=== PATIENT | male | born 1980 | race Caucasian/White ===

== ENCOUNTER 2017-06-05 12:57 | Emergency (ER) | payer OTHER ==
[2017-06-05] MEDS ORDERED: Phenergan 25 MG INJ IV ONE (13:28)
[2017-06-05] MEDS ORDERED: Sodium Chloride 0.9% 1000 ML 1,000 ML IV STA ×2 (13:28→14:56)
--- NOTE | 2017-06-05 13:36 | ERPHSYRPT ---
- History of Present Illness Time Seen by Provider: 06/05/17 13:32 Source: patient Exam Limitations: no limitations Patient Subjective Stated Complaint: was put on new meds today for heroin withdrawal. 30 min after taking them he felt nauseated and felt like his heart was racing. states he last used heroin two weeks ago. Triage Nursing Assessment: amublated to room. skin w/d, color normal, resp easy. pulse regular and normal rate. a/o times three. denies hives and itching Physician History: This is a 36-year-old white male who arrives with complaint of a nausea vomiting feels as if his heart is racing symptoms since approximately 1-1/2 hours. According to patient he is gone to see his family physician secondary to heroin withdrawal today, he states he has not used heroin for 2 weeks. He states that he was given a prescription for citalopram, diphenoxylate, and a prescription for naltrexone. He states shortly after taking these he began to experience heart racing nausea vomiting. Patient states symptoms began 30 minutes after taking his medications He has not had any hives or shortness of breath. Past medical history includes heroin addiction, kidney stones Past surgical history includes tonsillectomy and adenoidectomy, hernia repair, bariatric surgery Timing/Duration: today (1-1/2 hours prior to arrival) Severity: moderate Modifying Factors: Improves With: medication (just started diphenoxylate, citalopram, Naltrexone) Associated Symptoms: nausea, vomiting, malaise, other (heart racing), No shortness of breath, No heartburn, No diaphoresis, No cough, No chills, No chest pain, No fever, No headaches, No loss of appetite, No rash, No syncope, No seizure, No weakness Allergies/Adverse Reactions: No Known Drug Allergies Allergy (Unverified 06/05/17 13:20) Home Medications: Citalopram Hydrobromide [Citalopram HBr] 20 mg PO DAILY 06/05/17 [History] Diphenoxylate HCl/Atropine [Lomotil Tablet] 2 each PO BID 06/05/17 [History] Naltrexone HCl 50 mg PO DAILY 06/05/17 [History] Hx Tetanus, Diphtheria Vaccination/Date Given: No Hx Influenza Vaccination/Date Given: No Hx Pneumococcal Vaccination/Date Given: No - Review of Systems Constitutional: No Fever, No Chills Eyes: No Symptoms Ears, Nose, & Throat: No Symptoms Respiratory: No Cough, No Dyspnea Cardiac: Palpitations Abdominal/Gastrointestinal: No Abdominal Pain, No Nausea, No Vomiting, No Diarrhea, No Constipation, No Hematemesis, No Hematochezia, No Melena, No Dysphagia, No Appetite Changes Genitourinary Symptoms: No Dysuria Musculoskeletal: No Back Pain, No Neck Pain Skin: No Rash Neurological: No Dizziness, No Focal Weakness, No Sensory Changes Psychological: No Symptoms Endocrine: No Symptoms All Other Systems: Reviewed and Negative - Past Medical History Pertinent Past Medical History: Yes History: Other Other Medical History: heroin addiction, kidney stones - Past Surgical History Past Surgical History: Yes Gastrointestinal: Hernia Repair, Other Other Surgical History: bariatric surgery 2007 - Social History Smoking Status: Never smoker Exposure to second hand smoke: No Drug Use: heroin Patient Lives Alone: No - Nursing Vital Signs Nursing Vital Signs: Initial Vital Signs Temperature 98.1 F 06/05/17 13:05 Pulse Rate 74 06/05/17 13:05 Respiratory Rate 16 06/05/17 13:05 Blood Pressure 128/85 06/05/17 13:05 O2 Sat by Pulse Oximetry 100 06/05/17 13:05 Pain Scale Pain Intensity 0 - Physical Exam General Appearance: mild distress, alert, anxiety Eye Exam: PERRL/EOMI, eyes nml inspection Ears, Nose, Throat Exam: normal ENT inspection, TMs normal, pharynx normal, moist mucous membranes Neck Exam: normal inspection, non-tender, supple, full range of motion Respiratory Exam: normal breath sounds, lungs clear, No respiratory distress Cardiovascular Exam: regular rate/rhythm, normal heart sounds, normal peripheral pulses Gastrointestinal/Abdomen Exam: soft, normal bowel sounds, No tenderness, No mass Back Exam: normal inspection, normal range of motion, No CVA tenderness, No vertebral tenderness Extremity Exam: normal inspection, normal range of motion, pelvis stable Neurologic Exam: alert, oriented x 3, cooperative, fuel agent II-XII nml as tested, normal mood/affect, nml cerebellar function, nml station & gait, sensation nml, No motor deficits Skin Exam: normal color, warm, dry, No rash Lymphatic Exam: No adenopathy SpO2 Interpretation: normal (100%) SpO2: 100 Oxygen Delivery: Room Air - Course Nursing assessment & vital signs reviewed: Yes EKG Interpreted by Me: RATE (66 bpm), NORMAL AXIS, Other (EKG: Sinus arrhythmia at 66 bpm, normal axis, no acute ST or T wave changes essentially normal EKG) Ordered Tests: Active Orders 24 hr Category Date Time Status EKG-ER Only STAT Care 06/05/17 13:28 Active IV Insertion STAT Care 06/05/17 13:28 Active Psychiatric Evaluation STAT Care 06/05/17 17:05 Active ACETAMINOPHEN Stat Lab 06/05/17 13:30 Completed CBC W DIFF Stat Lab 06/05/17 13:38 Completed CMP Stat Lab 06/05/17 13:38 Completed ETHYL ALCOHOL Stat Lab 06/05/17 13:30 Completed SALICYLATE Stat Lab 06/05/17 13:30 Completed Urine Triage Profile Stat Lab 06/05/17 15:21 Completed Medication Summary Discontinued Medications Generic Name Dose Route Start Last Admin Trade Name Freq PRN Reason Stop Dose Admin Diphenhydramine HCl 25 mg 06/05/17 15:00 06/05/17 15:04 Benadryl 50 Mg/Ml IV 06/05/17 15:01 25 mg STAT ONE Administration Diphenhydramine HCl Confirm 06/05/17 15:02 Benadryl 50 Mg/Ml Administered 06/05/17 15:03 Dose 50 mg .ROUTE .STK-MED ONE Sodium Chloride 1,000 mls @ 999 mls/hr 06/05/17 13:28 06/05/17 13:39 Sodium Chloride 0.9% 1000 Ml IV 06/05/17 14:28 999 mls/hr .Q1H1M STA Administration Sodium Chloride Confirm 06/05/17 13:39 Sodium Chloride 0.9% 1000 Ml Administered 06/05/17 13:40 Dose 1,000 mls @ ud .ROUTE .STK-MED ONE Sodium Chloride Confirm 06/05/17 13:44 Sodium Chloride 0.9% 1000 Ml Administered 06/05/17 13:45 Dose 1,000 mls @ ud .ROUTE .STK-MED ONE Sodium Chloride 1,000 mls @ 999 mls/hr 06/05/17 14:56 06/05/17 15:04 Sodium Chloride 0.9% 1000 Ml IV 06/05/17 15:56 999 mls/hr .Q1H1M STA Administration Sodium Chloride Confirm 06/05/17 15:02 Sodium Chloride 0.9% 1000 Ml Administered 06/05/17 15:03 Dose 1,000 mls @ ud .ROUTE .STK-MED ONE Lorazepam 1 mg 06/05/17 15:24 06/05/17 15:29 Ativan 2 Mg/1 Ml Vial IV 06/05/17 15:25 1 mg STAT ONE Administration Lorazepam Confirm 06/05/17 15:28 Ativan 2 Mg/1 Ml Vial Administered 06/05/17 15:29 Dose 2 mg .ROUTE .STK-MED ONE Lorazepam 1 mg 06/05/17 16:24 06/05/17 16:30 Ativan 2 Mg/1 Ml Vial IV 06/05/17 16:25 1 mg STAT ONE Administration Lorazepam Confirm 06/05/17 16:28 Ativan 2 Mg/1 Ml Vial Administered 06/05/17 16:29 Dose 2 mg .ROUTE .STK-MED ONE Ondansetron HCl 4 mg 06/05/17 14:21 06/05/17 14:27 Zofran 4 Mg/2 Ml Vial IV 06/05/17 14:22 4 mg STAT ONE Administration Ondansetron HCl Confirm 06/05/17 14:26 Zofran 4 Mg/2 Ml Vial Administered 06/05/17 14:27 Dose 4 mg .ROUTE .STK-MED ONE Promethazine HCl 12.5 mg 06/05/17 13:28 06/05/17 13:39 Phenergan 25 Mg Inj IV 06/05/17 13:29 12.5 mg STAT ONE Administration Promethazine HCl Confirm 06/05/17 13:39 Phenergan 25 Mg Inj Administered 06/05/17 13:40 Dose 25 mg .ROUTE .STK-MED ONE Lab/Rad Data: Laboratory Result Diagrams 06/05/17 13:38 06/05/17 13:38 Laboratory Results 06/05/17 06/05/17 06/05/17 Range/Units 15:21 13:38 13:38 WBC 8.1 (4.0-10.5) K/mm3 RBC 5.25 (4.1-5.6) M/mm3 Hgb 14.6 (12.5-18.0) gm/dl Hct 44.8 (42-50) % MCV 85.3 (78-100) fl MCH 27.8 (26-32) pg MCHC 32.6 (32-36) g/dl RDW 14.7 H (11.5-14.0) % Plt Count 240 (150-450) K/mm3 MPV 10.1 H (6-9.5) fl Gran % 75.2 H (36.0-66.0) % Lymphocytes % 17.3 L (24.0-44.0) % Monocytes % 7.0 (0.0-12.0) % Eosinophils % 0.4 (0.00-5.0) % Basophils % 0.1 (0.0-0.4) % Basophils # 0.01 (0-0.4) Sodium 143 (136-145) mEq/L Potassium 3.6 (3.5-5.1) mEq/L Chloride 106 (98-107) mEq/L Carbon Dioxide 27.6 (21-32) mEq/L Anion Gap 12.7 (5-15) MEQ/L BUN 14 (9-20) mg/dL Creatinine 1.03 (0.55-1.30) mg/dl Estimated GFR > 60 ML/MIN Glucose 113 H (70-110) MG/DL Calcium 9.7 (8.5-10.1) mg/dL Total Bilirubin 0.30 (0.2-1.0) mg/dL AST 18 (15-37) U/L ALT 25 (12-78) U/L Alkaline Phosphatase 108 (46-116) U/L Serum Total Protein 7.5 (6.4-8.2) gm/dL Albumin 3.9 (3.4-5.0) g/dL Salicylates (2.8-20.0) mg/dl Urine Opiates Level NEG. (NEGATIVE) Ur Methadone NEG. (NEGATIVE) Acetaminophen (10-30) ug/ml Urine Barbiturates NEG. (NEGATIVE) Ur Phencyclidine (PCP) NEG. (NEGATIVE) Urine Amphetamine NEG. (NEGATIVE) U Benzodiazepine Level NEG. (NEGATIVE) Urine Cocaine NEG. (NEGATIVE) Urine Marijuana (THC) NEG. (NEGATIVE) Ethyl Alcohol (0.00-0.01) % 06/05/17 Range/Units 13:30 WBC (4.0-10.5) K/mm3 RBC (4.1-5.6) M/mm3 Hgb (12.5-18.0) gm/dl Hct (42-50) % MCV (78-100) fl MCH (26-32) pg MCHC (32-36) g/dl RDW (11.5-14.0) % Plt Count (150-450) K/mm3 MPV (6-9.5) fl Gran % (36.0-66.0) % Lymphocytes % (24.0-44.0) % Monocytes % (0.0-12.0) % Eosinophils % (0.00-5.0) % Basophils % (0.0-0.4) % Basophils # (0-0.4) Sodium (136-145) mEq/L Potassium (3.5-5.1) mEq/L Chloride (98-107) mEq/L Carbon Dioxide (21-32) mEq/L Anion Gap (5-15) MEQ/L BUN (9-20) mg/dL Creatinine (0.55-1.30) mg/dl Estimated GFR ML/MIN Glucose (70-110) MG/DL Calcium (8.5-10.1) mg/dL Total Bilirubin (0.2-1.0) mg/dL AST (15-37) U/L ALT (12-78) U/L Alkaline Phosphatase (46-116) U/L Serum Total Protein (6.4-8.2) gm/dL Albumin (3.4-5.0) g/dL Salicylates < 2.8 L (2.8-20.0) mg/dl Urine Opiates Level (NEGATIVE) Ur Methadone (NEGATIVE) Acetaminophen < 2.0 L (10-30) ug/ml Urine Barbiturates (NEGATIVE) Ur Phencyclidine (PCP) (NEGATIVE) Urine Amphetamine (NEGATIVE) U Benzodiazepine Level (NEGATIVE) Urine Cocaine (NEGATIVE) Urine Marijuana (THC) (NEGATIVE) Ethyl Alcohol < 0.010 (0.00-0.01) % - Progress Progress: improved Progress Note: 06/05/17 15:25 36-year-old white male with history of heroin addiction who states he has not used heroin for 3 weeks, Patient was seen by Dr. Lambert this morning and prescribe citalopram, diphenoxylate, naltrexone. Patient states that he took these medications and then one half hour later he began to have nausea and vomiting. Patient also felt like his heart was racing. Patient with stable vital signs. Physical examination essentially normal. Patient was given Phenergan 12.5 mg IV as well as normal saline 1 L IV. He continued to complain of vomiting therefore Zofran was ordered after discussion with pharmacy 4 mg IV. Patient then began to complain of being restless I he was given Benadryl 25 mg IV and 1 L of normal saline was ordered. Patient continues to complain of being restless case is discussed with Dr. Lambert. He feels patient is going through withdrawal. He has requested that we contact [facility] or arrange for patient to receive inpatient narcotic withdrawal treatment. Dr. Lambert was okay with giving the patient Ativan Will give patient Ativan 1 mg IV. Acetaminophen, salicylate, alcohol level, urine drug screen have been added on. Will await these labs as well as referral for possible inpatient treatment for narcotics. 06/05/17 18:32 Patient had telepsyche Performed by [facility]. They recommended that patient be released and to follow-up with them tomorrow any time after 8 AM he can present to [facility] here in [place]. Patient states he has no suicidal or homicidal ideation he is agreeable to follow-up with [facility]. Will give patient 1 Ativan 1 mg tablet to be taken one time at home as needed. - Departure Time of Disposition: 18:33 Departure Disposition: Home Clinical Impression: Narcotic withdrawal, adverse reaction to medication Vomiting Qualifiers: Vomiting type: unspecified Vomiting Intractability: non-intractable Nausea presence: with nausea Qualified Code(s): R11.2 - Nausea with vomiting, unspecified Condition: Fair Critical Care Time: No Referrals: DEENA LAMBERT MD [Primary Care Provider] - Additional Instructions: Return home. Rest. Plenty of fluids. Ativan 1 mg tablet take 1 as needed for anxiety. Follow-up with [facility] tomorrow morning. Zofran 4 mg orally every 4-6 hours as needed for nausea and vomiting. Return for acute distress or for severe symptoms. Prescriptions: Ondansetron [Zofran Odt] 4 mg PO Q4-6HPRN PRN #6 tab.rapdis PRN Reason: nausea and vomiting
[2017-06-05] MEDS ORDERED: Sodium Chloride 0.9% 1000 ML 1,000 ML ONE ×2 (13:39→15:02)
[2017-06-05] MEDS ORDERED: Phenergan 25 MG INJ ONE (13:39)
[2017-06-05] MEDS ORDERED: Sodium Chloride 0.9% 1000 ML 0 ML ONE (13:44)
[2017-06-05 13:45] LABS: BASOPHIL % 0.1 % (0.0-0.4); Basophil (Absolute #) 0.01 (0-0.4); Eosinophil % 0.4 % (0.00-5.0); Eosinophil (Absolute #) 0.03 (0-0.5); Granulocytes % 75.2 % (36.0-66.0); Hematocrit 44.8 % (42-50); Hemoglobin 14.6 gm/dl (12.5-18.0); Lymphocytes % 17.3 % (24.0-44.0); Mean Cell Volume 85.3 fl (78-100); Mean Corpuscular Hemoglobin 27.8 pg (26-32); Mean Corpuscular Hgb Concent. 32.6 g/dl (32-36); Mean Platelet Volume 10.1 fl (6-9.5); Monocyte (Absolute #) 0.57 (0.0-1.3); Platelet Count 240 K/mm3 (150-450); Red Blood Count 5.25 M/mm3 (4.1-5.6); Red Cell Distribution Width 14.7 % (11.5-14.0); White Blood Count 8.1 K/mm3 (4.0-10.5)
[2017-06-05 14:10] LABS: ALBUMIN 3.9 g/dL (3.4-5.0); ALKALINE PHOSPHATASE 108 U/L (46-116); ANION GAP 12.7 MEQ/L (5-15); BLOOD UREA NITROGEN 14 mg/dL (9-20); CHLORIDE 106 mEq/L (98-107); Calcium 9.7 mg/dL (8.5-10.1); Carbon Dioxide 27.6 mEq/L (21-32); Creatinine 1 1.03 mg/dl (0.55-1.30); EST GLOMERULAR FILTRATION RATE > 60 ML/MIN; Glucose 113 MG/DL (70-110); Potassium 3.6 mEq/L (3.5-5.1); SGOT/AST 18 U/L (15-37); SGPT/ALT 25 U/L (12-78); SODIUM 143 mEq/L (136-145); Total Protein 7.5 gm/dL (6.4-8.2)
[2017-06-05] MEDS ORDERED: Zofran 4 MG/2 ML VIAL IV ONE (14:21)
[2017-06-05] MEDS ORDERED: Zofran 4 MG/2 ML VIAL ONE (14:26)
[2017-06-05] MEDS ORDERED: BENADRYL 50 MG/ML IV ONE (15:00)
[2017-06-05] MEDS ORDERED: BENADRYL 50 MG/ML ONE (15:02)
[2017-06-05] MEDS ORDERED: Ativan 2 MG/1 ML VIAL IV ONE ×2 (15:24→16:24)
[2017-06-05] MEDS ORDERED: Ativan 2 MG/1 ML VIAL ONE ×2 (15:28→16:28)
[2017-06-05 15:46] LABS: Amphetamine,Urine NEG. (NEGATIVE); Barbiturate,Urine NEG. (NEGATIVE); Benzodiazepine,Urine NEG. (NEGATIVE); Cocaine,Urine NEG. (NEGATIVE); Methadone,Urine NEG. (NEGATIVE); Opiate,Urine NEG. (NEGATIVE); PCP,Urine NEG. (NEGATIVE); THC,Urine NEG. (NEGATIVE)
[2017-06-05 15:48] LABS: ETHYL ALCOHOL < 0.010 % (0.00-0.01); SALICYLATE < 2.8 mg/dl (2.8-20.0)
[2017-06-05 15:50] LABS: ACETAMINOPHEN < 2.0 ug/ml (10-30)
[2017-06-05 18:31] VITALS: BP 113/61; PULSE 94
[2017-06-05 18:37] VITALS: O2SAT 100
[2017-06-05] MEDS ORDERED: Ativan 1 MG PO ONE (18:37)
[2017-06-05] MEDS ORDERED: Ativan 1 MG ONE (18:44)
== END 2017-06-05 18:54 | disposition home or self-care (01) ==
LOC: ED 12:57
DX: F15.93 Other stimulant use, unspecified with withdrawal (principal); F11.20 Opioid dependence, uncomplicated; T40.605A Adverse effect of unspecified narcotics, initial encounter; R11.2 Nausea with vomiting, unspecified
CPT/HCPCS: 36000; 36415; 80053; 80307; 85025; 90791; 93005; 96360; 96374; 96375; 96376; 99284; G0481; J1200; J2060; J2405; J2550; Q3014; A9270-GY

== ENCOUNTER 2023-03-21 14:44 | Emergency (ER) | payer BC, OTHER ==
[2023-03-21] MEDS ORDERED: XYLOCAINE 1% HCL 20 ML MDV IJ ONE (14:45)
--- NOTE | 2023-03-21 14:54 | ERPHSYRPT ---
- History of Present Illness Time Seen by Provider: 03/21/23 14:53 Source: patient Exam Limitations: no limitations Physician History: This is a 42-year-old obese white male patient of Dr. Lambert who sent the patient over to our facility to have the right index finger evaluated. The patient has had infection in his right index finger for 2 days. There is a enlarging blister present. He is not sure if there was a splinter in this area. Patient was seen at Dr. Lambert's office and he is scheduled to receive daily injections of Rocephin intramuscularly until Sunday, March 23, 2003. He also was given a prescription for Levaquin 500 mg orally each day. He has only had 1 dose of Rocephin and 1 dose of the Levaquin orally. Patient is a diabetic. He has a history of heroin addiction. Patient is adamant that he does not want to be admitted to the hospital or stay overnight at any hospital. Timing/Duration: day(s) (2), worse Severity: mild Associated Symptoms: denies symptoms (Moderate) Allergies/Adverse Reactions: No Known Drug Allergies Allergy (Verified 03/21/23 15:41) Home Medications: Citalopram Hydrobromide [Citalopram HBr] 20 mg PO DAILY 06/05/17 [History] Naltrexone HCl 50 mg PO DAILY 06/05/17 [History] Dulaglutide [Trulicity] 4.5 mg SQ UD 03/21/23 [History] Venlafaxine HCl [Venlafaxine HCl ER] 150 mg PO DAILY 03/21/23 [History] Zolpidem Tartrate 10 mg [Ambien 10 MG] 10 mg PO DAILY 03/21/23 [History] diazePAM [Diazepam] 1 ea TID 03/21/23 [History] levoFLOXacin [Levofloxacin] 500 mg PO BID 03/21/23 [History] Hx Tetanus, Diphtheria Vaccination/Date Given: No Hx Influenza Vaccination/Date Given: No Hx Pneumococcal Vaccination/Date Given: No Travel Risk - International Travel Have you traveled outside of the country in past 3 weeks: No - Coronavirus Screening Are you exhibiting any of the following symptoms?: No Close contact with a COVID-19 positive Pt in past 14-21 Days: No - Review of Systems Constitutional: Chills (States he had chills at home last night) Eyes: No Symptoms Ears, Nose, & Throat: No Symptoms Respiratory: No Symptoms Cardiac: No Symptoms Abdominal/Gastrointestinal: No Symptoms Genitourinary Symptoms: No Symptoms Musculoskeletal: No Symptoms Skin: Cellulitis (Right index finger with blistering. There is some proximal streaking to the dorsal aspect of his right hand. Patient states that it is significantly better than yesterday.) Neurological: No Symptoms Psychological: No Symptoms Endocrine: No Symptoms Hematologic/Lymphatic: No Symptoms Immunological/Allergic: No Symptoms All Other Systems: Reviewed and Negative - Past Medical History Pertinent Past Medical History: Yes History: Other Other Medical History: heroin addiction, kidney stones - Past Surgical History Past Surgical History: Yes Gastrointestinal: Hernia Repair, Other Other Surgical History: bariatric surgery 2007 - Social History Smoking Status: Never smoker Exposure to second hand smoke: No Drug Use: heroin Patient Lives Alone: No - Nursing Vital Signs Nursing Vital Signs: Initial Vital Signs Temperature 97.0 F 03/21/23 15:45 Pulse Rate 106 H 03/21/23 15:45 Respiratory Rate 18 03/21/23 15:45 Blood Pressure 162/104 03/21/23 15:45 O2 Sat by Pulse Oximetry 98 03/21/23 15:45 Pain Scale Pain Intensity 10 - Physical Exam General Appearance: no apparent distress, alert, anxiety, obese Eye Exam: PERRL/EOMI, eyes nml inspection Ears, Nose, Throat Exam: normal ENT inspection, moist mucous membranes Neck Exam: normal inspection, non-tender, supple, full range of motion Respiratory Exam: airway intact, No chest tenderness, No respiratory distress Cardiovascular Exam: tachycardia Gastrointestinal/Abdomen Exam: No tenderness Rectal Exam: not done Back Exam: normal inspection, normal range of motion, No CVA tenderness, No vertebral tenderness Extremity Exam: normal range of motion, pelvis stable, tenderness, other (Cellulitis radial side of right index finger with 2 cm x 1 cm blistering. There is proximal streaking to the dorsal aspect of his left hand. 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, normal mood/affect, nml cerebellar function, nml station & gait, sensation nml Skin Exam: other Lymphatic Exam: No adenopathy (Cellulitis as described above) SpO2 Interpretation: normal O2 Delivery: Room Air Procedures - Incision and Drainage Time of Procedure: 16:40 Site: Right index finger Blade Size: 11 I & D Procedure: betadine prep Results: other (No [place] pus but cloudy, brawny fluid present) - Course Nursing assessment & vital signs reviewed: Yes Ordered Tests: Active Orders 24 hr Category Date Time Status CULTURE,WOUND Stat Lab 03/21/23 16:40 Received Medication Summary Discontinued Medications Generic Name Dose Route Start Last Admin Trade Name Kimberlee PRN Reason Stop Dose Admin Ceftriaxone Sodium 1,000 mg 03/21/23 16:03 03/21/23 16:27 Ceftriaxone Sodium 1000 Mg Inj Vial IM 03/21/23 16:04 1,000 mg STAT ONE Administration Ceftriaxone Sodium Confirm 03/21/23 16:20 Ceftriaxone Sodium 1000 Mg Inj Vial Administered 03/21/23 16:21 Dose 1,000 mg .ROUTE .[facility] ONE - Progress Progress Note: 03/21/23 16:54 This patient's medical issue is 1 of low complexity. Level complexity in the work-up performed based on review of the patient's past medical history, review of the patient's medication list, review patient drug allergy list, history present illness and physical findings on examination. We sent a culture of the content of the blister of the right second finger. Patient was adamant that he did not want to stay overnight anywhere. He does want a day off for tomorrow. He was told that he is to return to the emergency department if his symptoms worsen and that included fevers or worsening chills. Counseled pt/family regarding: diagnosis, need for follow-up Medical Desision Making - Diagnostic Testing Diagnostic test were ordered, analyzed, and reviewed by me: No - Departure Departure Disposition: Home Clinical Impression: Cellulitis of finger of right hand Condition: Stable Critical Care Time: No Referrals: DEENA LAMBERT MD [Primary Care Provider] - Follow up/PCP as directed Additional Instructions: Keep the site clean daily with soap and water. Do not use antibiotic ointment. Take your Levaquin as prescribed. Follow-up tomorrow as instructed to your primary care physician's office. Return to the emergency department sooner if your symptoms of fever, chills malaise are present or worsening Forms: Work/School Release Form
[2023-03-21 15:48] VITALS: BP 162/104; PULSE 106; RESP 18; TEMP 97; O2SAT 98
[2023-03-21] MEDS ORDERED: Rocephin 1000 MG INJ IM ONE (16:03)
[2023-03-21] MEDS ORDERED: Rocephin 1000 MG INJ ONE (16:20)
== END 2023-03-21 17:24 | disposition home or self-care (01) ==
LOC: ED 14:44
DX: L03.011 Cellulitis of right finger (principal); E11.9 Type 2 diabetes mellitus without complications; Z79.85 Long-term (current) use of injectable non-insulin antidiabetic drugs; Z79.899 Other long term (current) drug therapy
CPT/HCPCS: 26010; 87070; 96372; 99283; J0696